=== PATIENT | female | born 1970 | race Two or more races ===

== ENCOUNTER 2018-07-14 11:41 | Emergency (ER) | payer OTHER ==
[~2018-07-14] VITALS: Ht 170.2 cm; Wt 111.1 kg
[2018-07-14 11:51] VITALS: BP 154/95
[2018-07-14] MEDS ORDERED: IBUPROFEN 600 MG TABLET PO ONE ×2 (12:13→12:30)
== END 2018-07-14 13:51 | disposition home or self-care (01) ==
LOC: ER 11:41
DX: R07.81 Pleurodynia (principal)
CPT/HCPCS: 71046